=== PATIENT | female | born 1970 | race Caucasian/White ===

== ENCOUNTER 2021-06-10 07:37 | Emergency (ER) | payer MEDICAID ==
[~2021-06-10] VITALS: Ht 162.6 cm; Wt 77.2 kg
[2021-06-10 07:40] VITALS: BP 116/93
[2021-06-10] MEDS ORDERED: FOLIC ACID 1 MG TABLET PO ONE (07:45)
[2021-06-10] MEDS ORDERED: diphenhydrAMINE 50 MG/ML VIAL IVP ONE (07:45)
[2021-06-10] MEDS ORDERED: MVI, ADULT NO.4 WITH VIT K 10 ML, FOLIC ACID INJ 1 MG, THIAMINE INJ 100 MG in IV NORMAL... IV ONE (07:45)
[2021-06-10] MEDS ORDERED: ONDANSETRON PF 4 MG/2 ML VIAL. IVP ONE ×2 (07:45→11:45)
--- NOTE | 2021-06-10 08:02 | PHYS DOC ---
Past History Past Surgical History: General Adult EDM: Chief Complaint: WITHDRAWAL HPI: HPI: 50-year-old female presents with concern for withdrawal from alcohol. The patient has been on a drinking binge the weekend. Last drink was last night. She is supposed to take Klonopin daily and has not taken it for the last 2 days. She has been vomiting multiple times this morning. She has generalized cramping abdominal pain because of the vomiting. She denies fever or chills. She has no other complaints. She really wants benzodiazepines. Review of Systems: Review of Systems: Constitutional: Denies fever or chills Eyes: Denies change in visual acuity HENT: Denies nasal congestion or sore throat Respiratory: Denies cough or shortness of breath Cardiovascular: Denies chest pain or edema GI: Generalized abdominal pain, nausea, vomiting. Denies bloody stools or diarrhea : Denies dysuria Musculoskeletal: Denies back pain or joint pain Integument: Denies rash Neurologic: Denies headache, focal weakness or sensory changes Endocrine: Denies polyuria or polydipsia Lymphatic: Denies swollen glands Psychiatric: Denies depression or anxiety Current Medications: Current Meds: Current Medications Medications (Trade) Dose Ordered Sig/Juvenal Start Time Stop Time Status Last Admin Dose Admin Diphenhydramine HCl (Benadryl) 25 mg 1X ONCE 06/10/21 07:45 06/10/21 07:53 DC Folic Acid (Folic Acid) 1 mg 1X ONCE 06/10/21 07:45 06/10/21 07:46 UNV Lorazepam (Ativan Inj) 2 mg 1X ONCE 06/10/21 08:00 06/10/21 08:01 UNV Multivitamins/ Minerals 10 ml/ Folic Acid 1 mg/ Thiamine HCl 100 mg/Sodium Chloride 1,011.3 ml @ 1,000.187 mls/hr 1X ONCE 06/10/21 07:45 06/10/21 08:45 Ondansetron HCl (Zofran) 4 mg 1X ONCE 06/10/21 07:45 06/10/21 07:53 DC Allergies: Allergies: Allergies Coded Allergies Type Severity Reaction Last Updated Verified latex Allergy Unknown 06/10/21 Yes Physical Exam: PE: Constitutional: Well developed, well nourished, mild acute distress, non-toxic appearance. [] HENT: Normocephalic, atraumatic, bilateral external ears normal, oropharynx moist, no oral exudates, nose normal. [] Eyes: PERRLA, EOMI, conjunctiva normal, no discharge. [] Neck: Normal range of motion, no tenderness, supple, no stridor. [] Cardiovascular:Heart rate regular rhythm, no murmur [] Lungs & Thorax: Bilateral breath sounds clear to auscultation [] Abdomen: Vomiting. Bowel sounds normal, soft, mild generalized tenderness, no masses, no pulsatile masses. [] Skin: Warm, dry, no erythema, no rash. [] Back: No tenderness, no CVA tenderness. [] Extremities: No tenderness, no cyanosis, no clubbing, ROM intact, no edema. [] Neurologic: Alert and oriented X 3, normal motor function, normal sensory function, no focal deficits noted. [] Psychologic: Affect normal, judgement normal, mood anxious. [] Current Patient Data: Vital Signs: Vital Signs Date Time Temp Pulse Resp B/P (MAP) Pulse Ox O2 Delivery O2 Flow Rate FiO2 06/10/21 07:40 99.2 133 24 116/93 (101) 96 Room Air EKG: EKG: [] Radiology/Procedures: Radiology/Procedures: [] Heart Score: C/O Chest Pain: N/A Risk Factors: Risk Factors: DM, Current or recent (<one month) smoker, HTN, HLP, family history of CAD, obesity. Risk Scores: Score 0 - 3: 2.5% MACE over next 6 weeks - Discharge Home Score 4 - 6: 20.3% MACE over next 6 weeks - Admit for Clinical Observation Score 7 - 10: 72.7% MACE over next 6 weeks - Early Invasive Strategies Course & Med Decision Making: Course & Med Decision Making Pertinent Labs and Imaging studies reviewed. (See chart for details) The patient's alcohol level is 151. This would explain her elevated heart rate. She is not having withdrawal symptoms. She was given Zofran and Benadryl for her vomiting. Given her high level of anxiety, I did give her 2 mg of Ativan IV prior to getting her alcohol level back. She does not need further Ativan at this time for withdrawal. She is stable for discharge. [] Dragon Disclaimer: Dragon Disclaimer: This electronic medical record was generated, in whole or in part, using a voice recognition dictation system. Departure Departure: Impression: Primary Impression: Alcohol intoxication Qualified Codes: F10.920 - Alcohol use, unspecified with intoxication, uncomplicated Disposition: 01 HOME / SELF CARE / HOMELESS Condition: STABLE Patient Instructions: Alcohol Intoxication, [id number] NYLA YIN DO Jun 10, 2021 08:02
[2021-06-10 09:09] LABS: BASO # 0.1 x10^3/uL (0.0-0.2); BASO % 1 % (0-3); EOS % 0 % (0-3); HEMATOCRIT 40.1 % (36.0-47.0); HEMOGLOBIN 13.9 g/dL (12.0-15.5); LYMPH # 2.6 x10^3/uL (1.0-4.8); LYMPH % 33 % (24-48); MEAN CORPUSCULAR HEMOGLOBIN 34 pg (25-35); MEAN CORPUSCULAR HGB CONC 35 g/dL (31-37); MEAN CORPUSCULAR VOLUME 98 fL (79-100); MONO # 0.5 x10^3/uL (0.0-1.1); MONO % 7 % (0-9); NEUT # 4.5 x10^3uL (1.8-7.7); NEUT % 58 % (31-73); PLATELET COUNT 74 x10^3/uL (140-400); RED BLOOD COUNT 4.11 x10^6/uL (3.50-5.40); RED CELL DISTRIBUTION WIDTH 14.8 % (11.5-14.5); WHITE BLOOD COUNT 7.7 x10^3/uL (4.0-11.0)
[2021-06-10 09:18] LABS: CREATININE 0.7 mg/dL (0.6-1.0); GFR 89.3; POTASSIUM 3.7 mmol/L (3.5-5.1)
[2021-06-10 09:24] LABS: ALBUMIN 3.4 g/dL (3.4-5.0); TOTAL BILIRUBIN 0.4 mg/dL (0.2-1.0); TOTAL PROTEIN 6.7 g/dL (6.4-8.2)
[2021-06-10 10:16] LABS: BILIRUBIN,URINE NEG (NEG); CLARITY,URINE CLEAR; COLOR,URINE YELLOW; GLUCOSE,URINE NEG (NEG); NITRITE,URINE NEG (NEG); UROBILINOGEN,URINE 0.2 mg/dL (0.2 mg/dL)
[2021-06-10 10:17] LABS: BACTERIA,URINE 0 /HPF (0-FEW)
--- NOTE | 2021-06-10 13:53 | EKG ---
[address] [address] Test Date: 2021-06-10 Test Time: 07:37:41 Pat Name: ROGE MIRELES Department: Room: Gender: F Placement Director: DOMINGUEZ : 1970 Requested By: NYLA YIN Order Number: [id number] Reading MD: Measurements Intervals [place] Rate: 135 P: 50 TN: 96 QRS: 13 QRSD: 102 T: 21 QT: 288 QTc: 436 Interpretive Statements SINUS TACHYCARDIA QRS(T) CONTOUR ABNORMALITY CONSISTENT WITH INFERIOR INFARCT PROBABLY OLD ABNORMAL ECG RI6.02 No previous ECG available for comparison
== END 2021-06-10 12:32 | disposition home or self-care (01) ==
LOC: ER 07:37
DX: F10.129 Alcohol abuse with intoxication, unspecified (principal); R11.2 Nausea with vomiting, unspecified; Z91.040 Latex allergy status; Z98.890 Other specified postprocedural states; Y90.6 Blood alcohol level of 120-199 mg/100 ml
CPT/HCPCS: 36415; 80053; 81001; 85025; 93005; 96365; 96366; 96375; 96376; 99284; G0480; J1200; J2060; J2405; J7030

== ENCOUNTER 2021-06-16 20:42 | Emergency (ER) | payer MEDICAID ==
[~2021-06-16] VITALS: Ht 162.6 cm; Wt 77.2 kg
[2021-06-16 20:49] VITALS: BP 172/106
--- NOTE | 2021-06-16 21:08 | PHYS DOC ---
Past History Past Surgical History: (DAYSI NGUYEN APRN) Alcohol Use: Heavy (DAYSI NGUYEN APRN) General Adult EDM: Chief Complaint: ABSCESS HPI: HPI: Patient is a 50-year-old female who presents to the ER for a bug bite to her right buttock that she noticed yesterday. Patient states that she has been taking Tylenol for it she states it has been draining. She also is reporting chills and fever. She denies any shortness of breath or difficulty swallowing. (DAYSI NGUYEN APRN) Review of Systems: Review of Systems: Constitutional: See HPI Respiratory: Denies cough or shortness of breath GI: Denies abdominal pain, nausea, vomiting, bloody stools or diarrhea Musculoskeletal: Denies back pain or joint pain Integument: See HPI Neurologic: Denies headache, focal weakness or sensory changes Lymphatic: Denies swollen glands Psychiatric: Denies depression or anxiety (DAYSI NGUYEN APRN) Allergies: Allergies: Allergies Coded Allergies Type Severity Reaction Last Updated Verified Penicillins Allergy Unknown 06/16/21 Yes latex Allergy Unknown 06/16/21 Yes (DAYSI NGUYEN APRN) Physical Exam: PE: Constitutional: Well developed, well nourished, no acute distress, non-toxic appearance. [] HENT: Normocephalic, atraumatic plate that Eyes: PERRL, EOMI, conjunctiva normal, no discharge. [] Neck: Normal range of motion, no stridor Cardiovascular:Heart rate regular rhythm, no murmur [] Lungs & Thorax: Bilateral breath sounds clear to auscultation [] Abdomen: Bowel sounds normal, soft, no tenderness, no masses, no pulsatile masses. [] Skin: Warm, dry, no rash, abscess noted to right buttock with puncture that is draining purulent drainage with surrounding redness approximately 5 cm in diameter and warmth. Back: Normal range of motion Extremities: No tenderness, no cyanosis, no clubbing, ROM intact, no edema. [] Neurologic: Alert and oriented X 3, normal motor function, normal sensory function, no focal deficits noted. [] Psychologic: Affect normal, judgement normal, mood normal. [] (DAYSI NGUYEN APRN) Current Patient Data: Vital Signs: Vital Signs Date Time Temp Pulse Resp B/P (MAP) Pulse Ox O2 Delivery O2 Flow Rate FiO2 06/16/21 20:49 99.2 99 18 172/106 (128) 99 Room Air (DAYSI NGUYEN APRN) EKG: EKG: [] (DAYSI NGUYEN APRN) Radiology/Procedures: Radiology/Procedures: [] (DAYSI NGUYEN APRN) Heart Score: C/O Chest Pain: N/A Risk Factors: Risk Factors: DM, Current or recent (<one month) smoker, HTN, HLP, family hist ory of CAD, obesity. Risk Scores: Score 0 - 3: 2.5% MACE over next 6 weeks - Discharge Home Score 4 - 6: 20.3% MACE over next 6 weeks - Admit for Clinical Observation Score 7 - 10: 72.7% MACE over next 6 weeks - Early Invasive Strategies (DAYSI NGUYEN APRN) C/O Chest Pain: No (RYAN LITTLEJOHN DO) Course & Med Decision Making: Course & Med Decision Making Pertinent Labs and Imaging studies reviewed. (See chart for details) [] Patient is a 50-year-old female being seen in the ER for bug bite to her right buttock. Area is draining purulent drainage with surrounding redness and warmth. Patient is also reporting chills and fever. Patient is currently afebrile and not tachycardic. CBC and CMP was performed. 2154: Lab work pending at this time. I discussed patients case with supervising physician, care transferred at this time. 2207 (DAYSI NGUYEN APRN) Course & Med Decision Making I assumed complete care of patient after comprehensive signout from WATER SYSTEM OPERATOR I reviewed ER work-up and repeated certain aspects of history and physical exam Patient has abscess on right buttock that meets indication for antibiotics but no indication for incision and drainage Patient also has hypokalemia of unknown source, she cites that it is likely poor diet in fact that she has not been eating well recently Decision made to start Bactrim antibiotic. I disclose side effects such as kidney involvement, hyperkalemia, and skin changes that should prompt immediate cessation I also addressed patient's hypokalemia. Joint decision made to administer low- dose of potassium supplement, 20 mEq while in ER with instructions for close outpatient follow-up with PCP or urgent care for abscess and lab recheck Strict return precautions were discussed with good understanding verbalized by patient, all questions and concerns addressed prior to ER departure (RYAN LITTLEJOHN DO) Varsha Disclaimer: Varsha Disclaimer: This electronic medical record was generated, in whole or in part, using a voice recognition dictation system. (DAYSI NGUYEN APRN) Departure Departure: Impression: Primary Impression: Abscess Additional Impression: Hypokalemia Disposition: HOME / SELF CARE / HOMELESS Condition: STABLE Referrals: PCP,NO (PCP) Additional Instructions: You were evaluated in the Emergency Department for an abscess. You should soak the area in warm water for 20-30 minutes 3-4 times daily. Contact your doctor when the abscess comes to a head (looks like it is almost ready to pop open) and needs to be drained. Please keep the areas surrounding the abscess clean and dry. Take the antibiotics prescribed to you in full as directed. Please follow up with your primary care physician as needed. If you do not have a primary doctor, you can call your insurance company to find one. If you do not have insurance, you can go to the finance/registration department for more assistance. As discussed your potassium was also low. You were given a conservative amount of supplemental potassium here because as mentioned, your Bactrim antibiotic medication will also increase this level. It is imperative that you have this rechecked later this week by their primary care physician or local urgent care. Return to the Emergency Department if you experience worsening pain, persistent fevers greater than 100.4, an increase in area of redness, increased tenderness/warmth around the abscess, foul smelling discharge from the abscess, Scripts Sulfamethoxazole/Trimethoprim (BACTRIM DS TABLET) 1 Each Tablet 1 TAB PO BID for abscess for 5 Days, #9 TAB 0 Refills Prov: RYAN LITTLEJOHN DO 06/16/21 DAYSI NGUYEN APRN Jun 16, 2021 21:08 RYAN LITTLEJOHN DO Jun 16, 2021 22:54
[2021-06-16 22:13] LABS: BASO % 1 % (0-3); EOS # 0.2 x10^3/uL (0.0-0.7); EOS % 2 % (0-3); HEMATOCRIT 36.4 % (36.0-47.0); HEMOGLOBIN 12.6 g/dL (12.0-15.5); LYMPH % 23 % (24-48); MEAN CORPUSCULAR HEMOGLOBIN 34 pg (25-35); MEAN CORPUSCULAR HGB CONC 35 g/dL (31-37); MEAN CORPUSCULAR VOLUME 99 fL (79-100); MONO % 12 % (0-9); NEUT # 5.2 x10^3uL (1.8-7.7); NEUT % 62 % (31-73); PLATELET COUNT 186 x10^3/uL (140-400); RED BLOOD COUNT 3.69 x10^6/uL (3.50-5.40); RED CELL DISTRIBUTION WIDTH 14.5 % (11.5-14.5); WHITE BLOOD COUNT 8.4 x10^3/uL (4.0-11.0)
[2021-06-16 22:28] LABS: ALBUMIN 3.3 g/dL (3.4-5.0); ALBUMIN/GLOBULIN RATIO 0.8 (1.0-1.7); CALCIUM 8.1 mg/dL (8.5-10.1); CREATININE 0.7 mg/dL (0.6-1.0); GFR 89.3; TOTAL BILIRUBIN 0.2 mg/dL (0.2-1.0); TOTAL PROTEIN 7.2 g/dL (6.4-8.2)
[2021-06-16 22:35] LABS: POTASSIUM 2.9 mmol/L (3.5-5.1)
[2021-06-16] MEDS ORDERED: SULF1TAB24 PO (22:53)
[2021-06-16] MEDS ORDERED: HYDROcodone/APAP 7.5/325MG 1 TAB TABLET ONE (22:56)
[2021-06-16] MEDS ORDERED: POTASSIUM CHLORIDE 20 MEQ TABLET.ER. PO ONE ×2 (23:00)
[2021-06-16] MEDS ORDERED: HYDROcodone/APAP 7.5/325MG 1 TAB TABLET PO ONE (23:00)
[2021-06-16] MEDS ORDERED: SMZ/TMP 800/160MG TABLET. PO ONE (23:00)
== END 2021-06-16 23:34 | disposition home or self-care (01) ==
LOC: ER 20:42
DX: L02.31 Cutaneous abscess of buttock (principal); E87.6 Hypokalemia; F10.20 Alcohol dependence, uncomplicated; Z88.0 Allergy status to penicillin; Z91.040 Latex allergy status; Y90.9 Presence of alcohol in blood, level not specified
CPT/HCPCS: 36415; 80053; 85025; 99283

== ENCOUNTER 2021-08-17 15:37 | Emergency (ER) | payer MEDICAID ==
[~2021-08-17] VITALS: Ht 162.6 cm; Wt 82.8 kg
[~2021-08-17 15:37] MED LIST: SULF1TAB24 PO
[2021-08-17 15:38] VITALS: BP 171/91
--- NOTE | 2021-08-17 15:50 | PHYS DOC ---
Past History Past Surgical History: Alcohol Use: Heavy Adult General Chief Complaint Chief Complaint: FLU SYMPTOM HPI HPI Patient is a 50-year-old male presenting with son for URI symptoms. Patient reports onset of symptoms 4 days ago. Denies any recent travel but admits that numerous family members visited for Thanksgiving. States that she started developing runny nose with postnasal drip, nasal congestion, nausea and looser stools than usual. Symptoms have been ongoing. She tried taking Tylenol for relief without any significant improvement in symptoms. She admits history of asthma for which she is on albuterol inhaler and nebulizer. States she is unvaccinated against COVID-19. Does admit tobacco abuse, alcohol abuse, no illicit drug use. She has been afebrile, no other concerning signs or symptoms Review of Systems Review of Systems Fourteen body systems of review of systems have been reviewed. See HPI for pertinent positives and negative responses, other branch all other systems are negative, non-pertinent or non-contributory Allergies Allergies Allergies Coded Allergies Type Severity Reaction Last Updated Verified Penicillins Allergy Unknown 06/16/21 Yes ibuprofen Allergy Unknown 08/17/21 Yes latex Allergy Unknown 06/16/21 Yes prochlorperazine Allergy Unknown 08/17/21 Yes Physical Exam Physical Exam HEENT: Head: Normocephalic and atraumatic. TMs clear, no hemotympanum Conjunctivae and EOM are normal. Pupils are equal, round, and reactive to light. Oropharynx is clear and moist. No hematomas or lacerations or abrasions to face or scalp OP clear, no blood, no malocclusion, dentition intact Nares clear, no nasal septal hematoma General: Appears well, non toxic, and comfortable Skin: Warm, dry. Normal for ethnicity. HEENT: Atraumatic. PERRLA. Rhinorrhea and congestion. Nasal turbinates boggy b/l. Moist mucous membranes. Uvula midline. Maintaining secretions. No phonation changes. Neck: Trachea midline. Normal ROM. No stridor. Respiratory: Normal WOB. CTAB w/o w/r/r. No tachypnea. Cardiovascular: Regular rate and rhythm. Normal peripheral perfusion. Abdomen: Soft. Non tender. No distension. Back: Normal ROM. Musculoskeletal: No swelling or deformity. Neuro: Alert and oriented x 4. MAEE. Lymph: No cervical LAD. Psych: Normal affect and mood. Current Patient Data Vital Signs Vital Signs Date Time Temp Pulse Resp B/P (MAP) Pulse Ox O2 Delivery O2 Flow Rate FiO2 08/17/21 15:37 98.9 90 16 171/91 (117) 99 Room Air Vital Signs Date Time Temp Pulse Resp B/P (MAP) Pulse Ox O2 Delivery O2 Flow Rate FiO2 08/17/21 15:38 98.9 90 171/91 (117) 99 08/17/21 15:37 16 Room Air Lab Results Laboratory Tests Test 08/17/21 16:06 Influenza Type A (Rapid) Negative Influenza Type B (Rapid) Negative EKG EKG [] Radiology/Procedures Radiology/Procedures [] Heart Score C/O Chest Pain: No Risk Factors: Risk Factors: DM, Current or recent (<one month) smoker, HTN, HLP, family history of CAD, obesity. Risk Scores: Risk Factors: DM, Current or recent (<one month) smoker, HTN, HLP, family history of CAD, obesity. Course & Med Decision Making Course & Med Decision Making ABCs unremarkable HPI physical exam and comprehensive ER work-up nonconcerning for any emergent or surgical issues Negative flu, PUI Covid pending PCR results Suffering from likely self-limiting viral illness. Appropriate supportive care, quarantine and return precautions discussed and understood prior to ER departure Varsha Disclaimer Varsha Disclaimer This electronic medical record was generated, in whole or in part, using a voice recognition dictation system. Departure Departure: Impression: Primary Impression: Viral syndrome Additional Impression: Person under investigation for COVID-19 Disposition: HOME / SELF CARE / HOMELESS Condition: STABLE Referrals: PCP,LIBRADO (PCP) Additional Instructions: You were seen for headache, cough, body aches, fatigue, and possible infection with COVID-19. Your physical exam was reassuring. We tested you for COVID-19 but this test does not come back for 1 to 2 days. In the meantime you need to quarantine yourself at home away from all other individuals, especially those who are elderly or have any other chronic health issues or an immunocompromised status. You should return to the ED if you develop worsening cough, shortness of breath, chest pain, or any other new or concerning symptoms. Alternate Tylenol and ibuprofen as needed for body aches and pain. If your test does come back positive you need to quarantine yourself for 10 days until symptom-free. You should make sure to drink plenty of fluids and get plenty of rest. Scripts Ondansetron (ONDANSETRON ODT) 4 Mg Tab.rapdis 1 TAB PO PRN Q6-8HRS for NAUSEA, #16 TAB Prov: RYAN LITTLEJOHN DO 08/17/21 Problem Qualifiers RYAN LITTLEJOHN DO Aug 17, 2021 15:50
[2021-08-17 17:00] LABS: INFLUENZA A PATIENT NEGATIVE (NEGATIVE); INFLUENZA B PATIENT NEGATIVE (NEGATIVE)
[2021-08-17] MEDS ORDERED: ONDA4TAB12 PO (17:08)
== END 2021-08-17 17:13 | disposition home or self-care (01) ==
LOC: ER 15:37
DX: B34.9 Viral infection, unspecified (principal); F10.20 Alcohol dependence, uncomplicated; Z20.822 Contact with and (suspected) exposure to COVID-19; Z98.890 Other specified postprocedural states; Z88.0 Allergy status to penicillin; Z88.6 Allergy status to analgesic agent; Z91.040 Latex allergy status; Z88.8 Allergy status to other drugs, medicaments and biological substances; Y90.9 Presence of alcohol in blood, level not specified
CPT/HCPCS: 87804; 99283; C9803; U0003